=== PATIENT | female | born 1980 | race Caucasian/White ===

== ENCOUNTER 2022-06-08 10:52 | Outpatient (CLI) | payer BC | END 2022-06-08 10:53 | disposition home or self-care (01) | LOC: CSHLAB 10:52 | PROVIDERS: ATTEND Otolaryngology Plastic Surgery within the Head & Neck | DX: Z01.812 Encounter for preprocedural laboratory examination (principal); Z20.822 Contact with and (suspected) exposure to COVID-19 | CPT/HCPCS: 85014; 87811 ==

== ENCOUNTER 2022-06-11 06:00 | Day surgery (SDC) | payer SELFPAY ==
[2022-06-08 09:22] VITALS: BMI 44.1
[2022-06-11] MEDS ORDERED: Lidocaine 4% Topical Sol 50 ML BOT ONE (06:46)
[2022-06-11] MEDS ORDERED: EPINEPHrine 1 MG/ML AMP ONE (06:58)
[2022-06-11] MEDS ORDERED: Triamcinolone 40 MG/ML VIAL ONE (06:58)
[2022-06-11] MEDS ORDERED: Oxymetazoline HCl 0.05% ( 15 ML ) ONE (06:58)
[2022-06-11] MEDS ORDERED: Lidocaine 1% MPF 2 ML VIAL ONE (07:02)
[2022-06-11] MEDS ORDERED: Dexamethasone 20 MG/5 ML VIAL ONE (07:44)
[2022-06-11] MEDS ORDERED: Midazolam HCl 2 mg/2 ml Vial ONE ×2 (07:44)
[2022-06-11] MEDS ORDERED: CEFAZOLIN 1 GM VIAL ONE (07:44)
[2022-06-11] MEDS ORDERED: Ondansetron PF 4 MG/2 ML Vial ONE (07:44)
[2022-06-11] MEDS ORDERED: Lidocaine 1% PF 5 ML VIAL ONE (07:44)
[2022-06-11] MEDS ORDERED: PROPOFOL 80 ML ONE (07:44)
[2022-06-11] MEDS ORDERED: Fentanyl 100 MCG/2 ML VIAL ONE ×2 (07:44→08:52)
[2022-06-11] MEDS ORDERED: Glycopyrrolate 0.2 MG/ML 5 ML SYRINGE ONE (07:52)
[2022-06-11] MEDS ORDERED: Lidocaine 1% w/Epinephrine 1:100K 20 ML VIAL ONE (08:18)
[2022-06-11] MEDS ORDERED: PROPOFOL 20 ML ONE ×2 (08:24)
== END 2022-06-11 09:40 | disposition home or self-care (01) ==
LOC: CSHSDC 06:00
PROVIDERS: ATTEND Otolaryngology Plastic Surgery within the Head & Neck
PROC: 0C7S8ZZ Dilation of Larynx, Via Natural or Artificial Opening Endoscopic (ICD-10-PCS; principal; 2022-06-11)
PROC: 0BJ08ZZ Inspection of Tracheobronchial Tree, Via Natural or Artificial Opening Endoscopic (ICD-10-PCS; principal; 2022-06-11)
PROC: 0C5S8ZZ Destruction of Larynx, Via Natural or Artificial Opening Endoscopic (ICD-10-PCS; principal; 2022-06-11)
DX: J38.6 Stenosis of larynx (principal); Z20.822 Contact with and (suspected) exposure to COVID-19
CPT/HCPCS: C1726; J0171; J0690; J1100; J2250; J2405; J2704; J3010; J3301

== ENCOUNTER 2023-09-02 06:29 | Day surgery (SDC) | payer BC ==
[2023-08-28 15:17] VITALS: BMI 41.8
[2023-09-02] MEDS ORDERED: KETAMINE 100 MG/ML (5ML VIAL) ONE (07:24)
[2023-09-02] MEDS ORDERED: fentaNYL 50 mcg/mL 1 mL Vial ONE (07:24)
[2023-09-02] MEDS ORDERED: PROPOFOL 20 ML ONE ×2 (07:25)
[2023-09-02] MEDS ORDERED: Midazolam HCl 2 mg/2 ml Vial ONE ×2 (07:40→08:02)
[2023-09-02] MEDS ORDERED: Famotidine/PF 20 mg/2ml Vial ONE (07:40)
[2023-09-02] MEDS ORDERED: EPINEPHrine 1 MG/ML VIAL ONE (08:00)
[2023-09-02] MEDS ORDERED: Dexamethasone 20 MG/5 ML VIAL ONE (08:04)
[2023-09-02] MEDS ORDERED: Ondansetron PF 4 MG/2 ML Vial ONE (08:04)
[2023-09-02] MEDS ORDERED: Lidocaine 4% PF 5 ML AMP ONE (08:04)
[2023-09-02] MEDS ORDERED: Triamcinolone 40 MG/ML VIAL ONE ×2 (08:04→09:19)
[2023-09-02] MEDS ORDERED: Propofol 1,000 MG/100 ML VIAL IV ONE (08:06)
[2023-09-02] MEDS ORDERED: Oxymetazoline HCl 0.05% ( 15 ML ) ONE (08:12)
== END 2023-09-02 11:00 | disposition home or self-care (01) ==
LOC: CSHSDC 06:29
PROVIDERS: ATTEND Otolaryngology Plastic Surgery within the Head & Neck
PROC: 0C7S8ZZ Dilation of Larynx, Via Natural or Artificial Opening Endoscopic (ICD-10-PCS; principal; 2023-09-02)
DX: J38.6 Stenosis of larynx (principal); K21.9 Gastro-esophageal reflux disease without esophagitis; Z79.899 Other long term (current) drug therapy
CPT/HCPCS: C1726; J0171; J1100; J2250; J2405; J2704; J3010; J3301; S0028

== ENCOUNTER 2025-10-31 03:57 | Emergency (ER) | payer BC ==
[2025-10-31 04:30] LABS: #Basophils Less than 0.03 10x3/uL (0.0-0.2); #Eosinophils 0.42 10x3/uL (0.0-0.5); #Monocytes 0.57 10x3/uL (0.0-1.1); #Neutrophils 14.91 10x3/uL (1.5-8.4); %Basophils 0.1 % (0.0-2.0); %Eosinophils 2.5 % (0.0-6.0); %Lymphocytes 5.9 % (18.0-47.0); %Monocytes 3.4 % (0.0-10.0); %Neutrophils 87.7 % (40.0-75.0); Hematocrit 45.8 % (34.9-44.5); Hemoglobin 15.3 g/dL (12.0-15.5); Mean Corpuscular Hemoglobin 28.0 pg (27.0-33.0); Mean Corpuscular Volume 83.7 fL (81.6-98.3); Platelet Count 270 10x3/uL (150-450); Red Blood Cell (RBC) Count 5.47 10x6/uL (3.90-5.03); White Blood Cell (WBC) Count 17.00 10x3/uL (3.5-10.5)
[2025-10-31 04:45] LABS: INR-International Normal Ratio 1.0; PTT 21.7 sec (22.0-33.0); Prothrombin Time 11.0 sec (9.5-12.1)
[2025-10-31 04:48] LABS: ALT (SGPT) 12 U/L (Less than 34); AST (SGOT) 20 U/L (11-34); Albumin 3.6 g/dL (3.1-4.5); Alkaline Phosphatase 78 U/L (40-110); Anion Gap 14 mmol/L (10-20); BUN (Urea Nitrogen) 20 mg/dL (7.0-18.7); Bilirubin, Total 0.4 mg/dL (0.3-1.2); Calc. Creatinine Clearance 0 mL/min (70-130); Calcium 8.6 mg/dL (7.8-10.44); Carbon Dioxide 20 mmol/L (22-29); Chloride 108 mmol/L (98-107); Globulin 3.3 g/dL (2.4-3.5); Glucose 119 mg/dL (70-105); Lipase 12 U/L (8-78); Potassium 4.4 mmol/L (3.5-5.1); Sodium 138 mmol/L (136-145)
== END 2025-10-31 07:47 | disposition home or self-care (01) ==
LOC: CSHERS 03:57
DX: K52.9 Noninfective gastroenteritis and colitis, unspecified (principal); K92.1 Melena
CPT/HCPCS: 36415; 74177; 80053; 83605; 83690; 85025; 85610; 85730; 86850; 86900; 86901